=== PATIENT | male | born 1950 | race Caucasian/White ===

== ENCOUNTER 2022-04-02 07:48 | Day surgery (SDC) | payer MEDICARE, OTHER ==
[~2022-04-02] VITALS: Ht 172.7 cm; Wt 75.7 kg
[~2022-04-02 07:48] MED LIST: BSS IRRIG/VANCO(10MG)/TOBRA(5MG)/EPINEPH(1:1000-0.5CC)500ML BAG-ORONLY IR ONE; CEFUROXIME 1MG/0.1ML INTRACAMERAL INJ As Ordered ONE; CLOP75TA2 PO; CYCLOPENTOLATE 1% OPHTH SOLN 2 ML BTL OD SCH; ELIQ5TAB PO; HYDR-3911 PO; ISOS10TA3 PO; LIDOCAINE 1% SDV 5ML VIAL As Ordered ONE; LIDOCAINE 3.5 % 1ML OPHTH TOPICAL GEL OU ONE; LOSA100T45 PO; NIFE1TAB51 PO; OFLOXACIN 0.3 % (OCUFLOX) OPTH SOL 5ML OD ONE; PHENYLEPHRINE 2.5% OPHTH SOL 2ML OD SCH; PHENYLEPHRINE HCL 10 % OPHTH. SOL 5ML OD PRN; TADA20TA PO; TROPICAMIDE 1% OPHTH SOLN 2ML OD SCH
[2022-04-02 08:59] VITALS: BP 170/68
== END 2022-04-02 09:01 | disposition home or self-care (01) ==
LOC: M SDC 07:48
PROVIDERS: ATTEND Ophthalmology
DX: H25.11 Age-related nuclear cataract, right eye (principal); Z53.09 Procedure and treatment not carried out because of other contraindication; R00.1 Bradycardia, unspecified

== ENCOUNTER 2022-10-01 07:36 | Day surgery (SDC) | payer MEDICARE, OTHER ==
[~2022-10-01] VITALS: Ht 172.7 cm; Wt 72.0 kg
[~2022-10-01 07:36] MED LIST changes: -CYCLOPENTOLATE 1% OPHTH SOLN 2 ML BTL OD SCH; +ECOT81TA5 PO; +PHENYLEPHRINE 10% OPHTH SOL 5ML OD PRN; -PHENYLEPHRINE 2.5% OPHTH SOL 2ML OD SCH; -PHENYLEPHRINE HCL 10 % OPHTH. SOL 5ML OD PRN; -TROPICAMIDE 1% OPHTH SOLN 2ML OD SCH
[2022-10-01] MEDS ORDERED: MIDAZOLAM INJ 2MG/2ML VIAL As Ordered ONE (07:55)
[2022-10-01] MEDS ORDERED: fentaNYL 100 MCG/2 ML INJECTION As Ordered ONE (07:55)
[2022-10-01] MEDS ORDERED: GLYCOPYRROLATE INJ 0.2 MG/ML 2 ML VIAL As Ordered ONE ×2 (08:55→09:08)
[2022-10-01] MEDS ORDERED: TRYPAN BLUE 0.06 % 2.25 ML OPHTH SYR (VISIONBLUE) As Ordered ONE ×2 (09:02→09:05)
[2022-10-01 09:22] VITALS: BP 168/72
[2022-10-01] MEDS: TROPICAMIDE 1% OPHTH SOLN 15ML OD SCH ×2 (14:13→14:14)
[2022-10-01] MEDS: PHENYLEPHRINE 2.5% OPHTH SOL 2ML OD SCH ×2 (14:13→14:14)
[2022-10-01] MEDS: CYCLOPENTOLATE 1% OPHTH SOLN 2ML BTL OD SCH ×2 (14:13→14:14)
== END 2022-10-01 09:39 | disposition home or self-care (01) ==
LOC: M SDC 07:36
PROVIDERS: ATTEND Ophthalmology
DX: H25.11 Age-related nuclear cataract, right eye (principal); I48.91 Unspecified atrial fibrillation; Z86.72 Personal history of thrombophlebitis; Z95.5 Presence of coronary angioplasty implant and graft; I25.10 Atherosclerotic heart disease of native coronary artery without angina pectoris; Z79.01 Long term (current) use of anticoagulants; Z79.899 Other long term (current) drug therapy
CPT/HCPCS: 66984; 92015; J0697; J2250; J3010; V2632